=== PATIENT | male | born 1940 | race Caucasian/White ===

== ENCOUNTER 2023-12-26 09:54 | Day surgery (SDC) | payer MEDICARE, SELFPAY ==
[2023-12-18 08:01] VITALS: BMI 39.9
[2023-12-26] VITALS (12 sets, daily range): BP systolic 136–156; BP diastolic 65–91; PULSE 70–82; RESP 14–18; TEMP 36.4–36.9; O2SAT 91–99; BMI 40.6
--- NOTE | 2023-12-26 06:00 | DI.RAD.S_ITS ---
PROCEDURE: XR KNEE RT 1TO2V INDICATIONS: TKA TECHNIQUE: 2 view(s) of the knee acquired. COMPARISON: [facility] Outside Film, CR, XR KNEE 4+ VIEWS RIGHT, 03/05/2023, 13:18. FINDINGS: Bones: Patient is status post knee joint arthroplasty. Hardware components are in expected positions. Visualized bony structures are intact. Soft tissues: Overlying postoperative changes are noted. IMPRESSION: Expected post-operative appearance of a knee arthroplasty. Dictated by: Selena Pollack M.D. on 12/26/2023 at 15:41 Approved by: Selena Pollack M.D. on 12/26/2023 at 15:41
[2023-12-26] MEDS: CELECOXIB 200 MG CAPSULE 400 MG PO (10:52)
[2023-12-26] MEDS: ACETAMINOPHEN 325 MG TABLET 975 MG PO (10:53)
[2023-12-26] MEDS: LACTATED RINGERS 1,000 ML 42 ML IV ×3 (11:00→15:02)
--- NOTE | 2023-12-26 11:41 | PM.PREOP ---
Pre-operative Note Interval Note History & Physical reviewed/Exam performed by Physician: Yes Changes to H&P: No
--- NOTE | 2023-12-26 12:03 | SUR.OPER ---
Supine on padded OR bed, head on pillow, arms secured on padded arm boards at <90 degrees abduction, legs uncrossed, safety belt at waist, tape over blanket over non op leg. operative leg draped free in demayo boot.
--- NOTE | 2023-12-26 12:16 | SUR.PREOP ---
Block start time [1207] . Time out at 1156 Monitoring initiated and maintained throughout procedure. Oxygen and medications given per anesthesiologist instructions. Patient remained stable throughout procedure, no adverse reactions noted. Block end time [1210].
[2023-12-26] MEDS: CEFAZOLIN VIAL 3 GM in SODIUM CHLORIDE 0.9% 100 ML IV ×2 (12:34→20:29)
[2023-12-26] MEDS: TRANEXAMIC ACID 1,000 MG VIAL 1000 MG INJ ×2 (12:40→14:40)
[2023-12-26] MEDS: BUPIVACAINE LIPOSOME 266 MG/20 ML VIAL INJ (12:43)
[2023-12-26] MEDS: BUPIVACAINE 0.25% (PF) 60 ML, EPINEPHrine 0.3 MG INJ (12:47)
--- NOTE | 2023-12-26 15:39 | PM.OP.1 ---
Operative Date/Time/Diagnoses Date of procedure: 12/26/23 Time of procedure: 12:00 Pre-op diagnosis: Right knee arthritis Post-op diagnosis: same Procedure & Clinicians Procedure: Total knee arthroplasty, right CPT code 61329 Robotic assisted surgery S2 900 Computer navigated surgery. 61125 Same procedure as scheduled: Yes Indications: The patient is a 83-year-old male with end-stage rllz-ev-mcxy knee arthritis. The patient has a significant bilateral varus knee arthritis. He presents for right knee arthritis for a scheduled total knee arthroplasty of the right knee. He has failed conservative treatment with activity modifications, injections, physical therapy and bracing. They has been indicated for total knee replacement. The risks and benefits of the procedure have been discussed with the patient even opportunity to ask questions. The risks of surgery include but are not limited to infection, malunion, nonunion, fracture, loosening, persistence of pain, damage to nerves and blood vessels, need for additional procedures, DVT, PE, cardiopulmonary complications and . The patient expressed a thorough understanding of the risks and benefits of surgery and has elected to proceed. Consent was signed in the office. During the operation the services of physician neurosurgical nurse practitioner were medically indicated and necessary to provide the exposure of the operative site for the surgical procedure and to maintain the limb in a proper position to carry out the procedure safely and efficiently. Without a qualified pathologist assistant being present this would extend the operative procedure and would have made the procedure more technically difficult to perform. The neurosurgical nurse practitioner was medically necessary for the proper positioning, retraction and manipulation of the limb, proper exposure, and manipulation of the tissue for implantation implants and closure. Surgeon: Chrissie Howell Corporate Concierge: Ubaldo Lora Anesthesia Type: Spinal, Peripheral nerve block and Local Operative Notes Findings: Varus knee arthritis right knee Kellgren Brendan grade 4 large osteophytes. Closure Type: primary Specimen(s): none sent Prosthetic devices, grafts, tissues, transplants, or devices: Ju[employer] Nephew journey 2 bcs total knee arthroplasty, right, fever cobalt chromium size 6, tibia size 5, poly 9 mm, patella 35 x 7.5 mm, round Estimated Blood Loss (mL): 30 Blood products transfused: none Tourniquet time (min): 109 Procedure in detail: Patient was seen in the preoperative area where the patient and site of surgery were identified in the operative knee was marked informed consent confirmed. This was the right knee. Patient received the appropriate preoperative antibiotics this was 3 g of Ancef. And other preoperative medications and was taken to the operating room placed on operating table in the supine position. Peripheral nerve block was placed for postoperative pain control. Spinal anesthetic were administered. The operative extremity was then prepped and draped in the standard sterile fashion with a nonsterile tourniquet high on the thigh. Patient was placed on the green foam bolsters. A lateral post was placed at the level of the proximal thigh /trochanter area as a lateral post. Formal time-out procedure was performed confirming the patient's side and site of surgery and administration of appropriate preoperative antibiotics and implants were in the room accounted for. All were in agreement. Patient received a preoperative dose of tranexamic acid and then a 2nd dose at tourniquet release Patient was prepped and draped in the standard sterile fashion and the foot was placed into the leg maloney. This was taken into high flexion and the incision was marked out over the anterior knee to the level of the medial tubercle tubercle. The Esmarch was then used for exsanguination and the tourniquet was inflated to 250 mmHg. Was made through the skin and subcutaneous tissue in high flexion this was then brought down into 30? of flexion for the medial parapatellar arthrotomy. A marker pen was used to ephraim the arthrotomy site for later repair. Joint fluid was evacuated. The anterior osteophytes and soft tissues were removed. Routine medial release was initially made along the medial proximal tibia with Bovie. The patella was 1st cut using the saw sized and prepped and then subluxed throughout the case and protected. The leg was then taken into extension and the patella was everted and the patella was cut to accommodate the patellar button. This was sized to a 35 mm button for a 7.5 mm thickness to recreate the original dimensions of the patella. Poly was removed and the protector replaced and the patella was subluxed and the knee was taken back up into flexion and attention was returned to the femur. Then the rotational landmarks of Whitesides line and the trans epicondylar axis were marked on the femur with electrocautery. ACL and PCL were released. Then the Cori robotic pins were placed into the femur and tibia and the race set up. Landmarks were established and the robotic planning was commenced. Plan was developed and improved and adjusted as necessary to create a balanced knee. Initial deformity was 8? of varus. Plan correction to 3? of varus with balancing 1-2 mm in flexion and extension in the medial and lateral compartments. External rotation to 4? on the femur was utilized which was consistent with the patient's anatomy. Once the plan was satisfactory the bur was used to remove the distal femur. Then attention was turned to the tibia the tibial peg rios were made using the robotic guidance and then the tibia cut made. This was checked and refined with the bur. The extension block checked the resection was appropriate to the planned 3? of varus. Next attention was returned to the femur. Then the 5 in 1 cutting block was applied complete the femur cuts. The trials were placed. And the femoral notch was cut a standard fashion using Reamer then slap hammer. The knee was trialed and the checked. Knee was balanced in flexion extension. Range of motion 0-135 degrees was obtained. The rotation femoral trial was marked Bovie on the bone and checked with a long allegra. The tibia was then finished with a drill and flange cut and then The trial implants were removed. Then in extension the posterior capsule was injected with a mixture of 40 mL of 0.25% Marcaine and 20 mL of 266 mg Exparel care to avoid excessive injection posterior laterally. The remainder of this was saved for the capsule and subcutaneous tissue and placed during cement curing. The wound and bone was irrigated with pulsatile lavage. This was then dried with a sponge. The components were verified and opened and the cement was mixed. Cement was applied to the components and then to the bone then the tibia was cemented in place 1st followed by the femur then the patella. Excess cement was removed. With care looking around the back of the knee. Remainder of the injection was injected around the capsule. trial poly was placed back in the leg was placed into extension for the patellar cementing. After this was cured approximately 15 minutes later and the dilute Betadine solution was placed for at least 3 minutes in the wound this was then irrigated out and the final poly was placed. This was a 9 mm poly. The tourniquet was released hemostasis was achieved. Final 1g of tranexamic acid was given IV at the time of tourniquet release. The capsule was closed with 1. Ethibond suture. Followed by a running Quill stitch. Subcutaneous layer was closed with 3-0 Vicryl suture. Skin was closed with a running V lock suture Stratafix Monocryl type suture and Dermabond. An Aquacel dressing was placed . An Clifford wrap was applied. Anesthetic was terminated the patient was woken from anesthesia and taken to recovery room in good condition. There no immediate complications from this procedure. The patient will be maintained on a standard total knee replacement protocol with weight-bearing as tolerated. Complications: none Post-operative Condition: stable Disposition: PACU Plan for aftercare: Standard total knee postop protocol. Weightbear as tolerated. Immediate range of motion. Work with physical therapy. Aspirin 81 mg b.i.d. x6 weeks for DVT prophylaxis. Follow up in Orthopedic Clinic in 2 weeks With PA. In 6 weeks with surgeon.
[2023-12-26] MEDS: ACETAMINOPHEN 325 MG TABLET 650 MG PO (16:05)
[2023-12-26] MEDS: AMLODIPINE 5 MG TABLET PO (16:06)
[2023-12-26] MEDS: OXYCODONE IR 5 MG TABLET PO ×2 (16:06→20:20)
[2023-12-26] MEDS: IBUPROFEN 400 MG TABLET PO (16:06)
[2023-12-26] MEDS: LACTATED RINGERS 1,000 ML 100 ML IV ×2 (16:07→23:59)
[2023-12-26] MEDS: LATANOPROST 0.005% OPHTH 2.5 ML 1 DROPS EYE-RIGHT (20:18)
[2023-12-26] MEDS: DOCUSATE 100 MG CAPSULE PO (20:19)
[2023-12-26] MEDS: ASPIRIN EC 81 MG TABLET PO (20:19)
[2023-12-27 00:07] VITALS: BP 140/72; PULSE 80; RESP 18; TEMP 36.4; O2SAT 96
[2023-12-27] MEDS: ACETAMINOPHEN 325 MG TABLET 650 MG PO ×3 (03:32→16:24)
[2023-12-27] MEDS: CEFAZOLIN VIAL 3 GM in SODIUM CHLORIDE 0.9% 100 ML IV (03:32)
[2023-12-27] MEDS: OXYCODONE IR 5 MG TABLET PO (03:32)
[2023-12-27 03:35] VITALS: BP 136/80; PULSE 78; RESP 18; TEMP 37.1; O2SAT 96
[2023-12-27] MEDS: PANTOPRAZOLE DR 20 MG TABLET PO (05:36)
[2023-12-27 06:00] LABS: Hematocrit 32.3 % (41-53); Hemoglobin 10.7 g/dL (13.5-17.5)
--- NOTE | 2023-12-27 07:42 | PM.DS.1 ---
History of Present Illness History of Present Illness Chief complaint: Right TKA *OPB* 12/25 Narrative: Peter is a pleasant 83 year old male who is POD#1 s/p right TKA by Dr. Howell. This morning he states he is doing well, has mild-moderate pain only. Has been up and walking around since yesterday, reports he was walking around the halls yesterday several times, admits he might have overdone it a bit because now he feels like he has a quad cramp. Urinating well without issue, states he was able to get up and use the restroom 3x last night. Has post-op pain medications at home already. Has post op PT set up alread as well. Denies fever, chills, chest pain, SOB, nausea, vomiting. No questions or concerns for me this morning. Operative Date/Time/Diagnoses Date of procedure: 12/26/23 Time of procedure: 12:00 Pre-op diagnosis: Right knee arthritis Post-op diagnosis: same Procedure & Clinicians Procedure: Total knee arthroplasty, right CPT code 65065 Robotic assisted surgery S2 900 Computer navigated surgery. 41980 Same procedure as scheduled: Yes Indications: The patient is a 83-year-old male with end-stage srwb-lq-akga knee arthritis. The patient has a significant bilateral varus knee arthritis. He presents for right knee arthritis for a scheduled total knee arthroplasty of the right knee. He has failed conservative treatment with activity modifications, injections, physical therapy and bracing. They has been indicated for total knee replacement. The risks and benefits of the procedure have been discussed with the patient even opportunity to ask questions. The risks of surgery include but are not limited to infection, malunion, nonunion, fracture, loosening, persistence of pain, damage to nerves and blood vessels, need for additional procedures, DVT, PE, cardiopulmonary complications and . The patient expressed a thorough understanding of the risks and benefits of surgery and has elected to proceed. Consent was signed in the office. During the operation the services of physician surgical services director were medically indicated and necessary to provide the exposure of the operative site for the surgical procedure and to maintain the limb in a proper position to carry out the procedure safely and efficiently. Without a qualified entry level administrative assistant being present this would extend the operative procedure and would have made the procedure more technically difficult to perform. The surgical services director was medically necessary for the proper positioning, retraction and manipulation of the limb, proper exposure, and manipulation of the tissue for implantation implants and closure. Surgeon: Chrissie Howell Spectrographer: Ubaldo Lora Anesthesia Type: Spinal, Peripheral nerve block and Local Discharge Providers Provider Discharge Date: 12/27/23 Primary care physician: Deuce Valenzuela MD Consults: 12/26/23 06:00 Consult to Anesthesiology Routine Comment: Consulting Provider: Anesthesiologist Reason for consultation: Regional block for post operative pain control Has provider been notified: No 12/26/23 15:47 Consult to Discharge Planning Routine Comment: Consult to Occupational Therapy Evaluate & Treat Comment: Physician Instructions: Evaluate and treat Consult to Physical Therapy Evaluate & Treat Comment: Physician Instructions: postop TKA protocol Discharge provider: Susie Pollack PA-C Summary Hospital Course Discharge Diagnosis: Stable status post right TKA Hospital Course: Uncomplicated hospital course Exam Vital Signs (past 8 hours): - 12/27/23 00:07 12/27/23 03:35 Temperature 97.6 F 98.8 F Pulse Rate 80 78 Respiratory Rate 18 18 Blood Pressure 140/72 136/80 Pulse Oximetry 96 96 Oxygen Flow Rate 0 2 Oxygen Delivery Method Nasal Cannula Oxygen Flow Rate 2 Narrative Exam Narrative: Patient lying comfortably in bed during our interview today. No acute distress. AOx3. Grossly normal alignment of the right lower extremity with moderate swelling to the right knee. No ecchymosis. 5/5 strength with DF, PF, EHL bilaterally. R knee ROM 5-45. Gross sensation intact throughout bilateral lower extremities. Calves soft and compressible bilaterally. SCDs are on and functioning Brisk capillary refill, PT pulses intact. Post-surgical dressing/Aquacel dressing completely saturated with bloody discharge. Objective Labs 12/27/23 05:00 Labs: Laboratory Results - last 24 hr 12/27/23 05:00 Hgb 10.7 L Hct 32.3 L PFSH Medical History (Updated 12/18/23 @ 09:18 by Aissatou Velarde RN) Osteoarthritis Presence of device (~2021) Overactive bladder Bleeding ulcer Asthma GERD (gastroesophageal reflux disease) ANSHUL (obstructive sleep apnea) BPH (benign prostatic hyperplasia) HTN (hypertension) Hypercholesterolemia Diverticulosis History of chest pain Chronic back pain Glaucoma Influenza A (08/2023) Surgical History (Updated 12/18/23 @ 09:18 by Aissatou Velarde RN) Hx of arthroscopy of right knee Hx of tonsillectomy S/P TURP (transurethral resection of prostate) Hx of bilateral cataract extraction Social History household members: spouse and children Smoking Status: Former smoker alcohol intake: current Discharge Assessment & Plan Assessment and Plan Assessment: Stable s/p R TKA The patients saturated Aquacel dressing was removed and there continued to be some bloody drainage from the incision, most prominently at the distal incision. The wound had a few jeanette at superior aspect but the rest of the incision was closed w/ subcutaneous sutures. To stop/prevent continued bleeding the wound was cleaned with chlorhexidine, sterile gloves were used, and the wound was completely stapled closed. The wound was then dressed with a althea dressing and the patient was counseled on althea dressing use and care. He tolerated the procedure well. Plan of Treatment: 1) Plan to discharge to home today with pending PT evaluation. 2) Continue multimodal pain management with ice to the knee for additional pain control. Patient has postop pain medications at home already. 3) ASA b.i.d. for DVT prophylaxis. Counseled on DVT signs and symptoms. 4) Start outpatient physical therapy to work on range of motion and mobility. 5) Keep dressing intact, clean, dry until 2 week postop appointment. No soaking the incision site in pools or tubs. No topical ointments or creams to the incision site. 6) Follow up at [facility] orth[facility]ics in 2 weeks for a postop appointment and wound check/staple removal. All patient's questions were answered, he demonstrates understanding and is in agreement with the plan. Call our office if any questions or concerns arise. Discharge Plan Discharge Plan Patient Disposition: Home Discharge orders & Medications Discharge Orders: Discharge (Order); Ordered 12/27/23 Ordered By: Susie Pollack Prescriptions: New acetaminophen 325 mg Tablet 650 mg PO Q6H Qty: 90 0RF aspirin 81 mg Tablet,Delayed Release (Dr/Ec) 81 mg PO BID Qty: 90 0RF ibuprofen 400 mg Tablet 400 mg PO Q4H PRN (Reason: Pain, Mild (1-3)) Qty: 90 0RF docusate sodium 100 mg Capsule 100 mg PO BID Qty: 30 0RF ondansetron 4 mg Tablet,Disintegrating 4 mg PO Q4HR PRN (Reason: Nausea And Vomiting) Qty: 10 0RF oxycodone 5 mg Tablet 5 mg PO Q3H PRN (Reason: Pain, Moderate (4-6)) Qty: 30 0RF Continued latanoprost 0.005 % Drops 1 drp OPHTHALMIC (EYE) BEDTIME acetaminophen-caffeine 500-65 mg Tablet 2 tab PO DAILY PRN (Reason: Headache) amlodipine 5 mg Tablet 5 mg PO QPM ferrous sulfate 325 mg (65 mg iron) Tablet 325 mg PO DAILY omeprazole 20 mg Tablet,Delayed Release (Dr/Ec) 20 mg PO DAILY PreserVision AREDS-2 250-90-40-1 mg Capsule 1 tab PO BID Advair Diskus 250-50 mcg/dose Blister With Device 1 inh INHALATION DAILY PRN (Reason: Shortness Of Breath) albuterol sulfate 90 mcg/actuation Hfa Aerosol Inhaler 2 puff INHALATION Q4-6H PRN (Reason: Shortness Of Breath) Follow up/Referrals: Chrissie Howell MD [Physician] - (Follow up at [facility] as scheduled in 2 weeks. ) Deuce Valenzuela MD [Primary Care Provider] - Diet/Activity/Treatments Diet: Diet as Tolerated Activity: Weightbearing as tolerated. Work with outpatient physical therapy to improve strength and mobility. Cold/Heat Therapy: Ice to the knee for additional pain control Other treatments: Medications: -Aspirin 81mg twice daily x6 weeks to prevent blood clots. -OTC Tylenol 500 mg 1 tablet every 4 hours as needed for pain/fever. Max 6 tablets per day. (take scheduled every 4-6 hours for the first few days to week after schedule to help stay on top of your pain) -Ibuprofen 400 mg 1 tablet every 4 hours as needed for pain/inflammation. Max 2,400 mg per day. (take scheduled for the first few days-week after surgery to stay on top of your pain) -Oxycodone 5 mg take 1-2 tablets (5-10mg) every 4 hours as needed for moderate-severe pain (narcotic pain medication). (maximum dose for very severe pain would be 3 pills (15mg) every 3 hours) -Vistaril (hydroxyine) 25mg 1 tab every 4 hours as needed for spasms/pain/nausea. -ondansetron 4mg - 1 tab every 8 hours as needed for nausea -As needed medications: -Ducolax and /or MiraLax as needed for constipation from narcotic pain medications. -Pepcid AC as needed for stomach upset (usually from aspirin or ibuprofen). Dressing/Wound care: -Remove the Clifford wrap 48 hours after surgery. -Keep Althea dressing in place until postoperative follow-up office visit. -Okay to shower. Keep wound out of direct water stream. No soaking or submerging until all the scabs fall off (approximately 4-6 weeks). -No lotions, ointments, or scar creams directly to the incision until the wound is healed (4-6 weeks), -Please call the office if dressing becomes wet, soiled, or saturated. Activities: -Weight-bearing as tolerated. Use front wheeled walker, and progress to cane when safe. -Continue with home exercises as directed by your physical therapist. (work on getting your leg. knee fully straight and bending knee as well- motion after knee replacement is very important) -should have outpatient Physical Therapy visits set up to start within 1 week after surgery -Elevate ?toes above the nose if you have significant swelling in your lower leg. (A wedge pillow is easiest.) -Ice your incision as needed for pain/inflammation/swelling. Protect your skin with a folded pillowcase. -Incentive Spirometer (breathing device from hospital): 5-10xs every hour while awake for the first 1-2 weeks. Follow-up: -Follow-up with your surgeon or PA in the office in 10-14 days after surgery. -Follow-up with your surgeon 6 weeks postoperatively. Contact the office if you have any of the following: ? Painful swelling or numbness ? Unrelenting pain ? Fever (over 101?- it is normal to have a low grade fever for the first day or two following surgery) or chills ? Redness around the incisions ? Color changes ? Continuous bleeding or drainage from the incision (a small amount is expected) ? Excessive nausea or vomiting ? Difficulty breathing If you have an emergency that requires immediate attention such as shortness of breath or chest pain, call 911 or proceed to the nearest emergency room. [facility]: [phone] Pain Medications: It is the policy of [facility] that narcotic medications will only be refilled during office hours. Additionally, due to the alarming rate of narcotic pain medication abuse/dependence, it has become necessary for physician practices to closely manage patient use of prescription narcotic pain relievers, such as Vicodin ([place]), Percocet, and Oxycodone products. Narcotic pain management in the postoperative period may not exceed 6 weeks. If narcotic pain management is required beyond 90 days, then a referral to a Chronic Pain Specialist will be made. If a request for a medication prescription of refill has been made, the physician must review your chart prior to authorizing the request. Please be patient with office staff. If you call during patient hours, your call may not be returned until the end of the day. Skin/Wound/Dressing Care Report to your healthcare provider any signs of infection, such as:: chills, fever, night sweats, unusual drainage and unusual redness Dressing: Keep dressing intact, clean and dry until 2 week post-op appointment. No soaking the incision site in pools or tubs. No topical ointments or creams to the incision site. Visit Report/Discharge Packet Instructions: DI for Knee Replacement, DI for Prescription Opioid Use Stand Alone Forms: Patient Portal/API Discharge Data Primary Care Provider: Deuce Valenzuela Attending Provider: Chrissie Howell VTE Deep Vein Thrombosis/Pulmonary Embolism Present on Admission: No
[2023-12-27] MEDS: OXYCODONE IR 10 MG TABLET PO ×3 (07:58→16:24)
[2023-12-27 08:00] VITALS: BP 135/74; PULSE 96; RESP 20; TEMP 37.1; O2SAT 96
[2023-12-27] MEDS: ASPIRIN EC 81 MG TABLET PO (08:31)
[2023-12-27] MEDS: DOCUSATE 100 MG CAPSULE PO (08:31)
--- NOTE | 2023-12-27 12:17 | OT.IP.EVAL ---
Current Diagnoses Unilateral primary osteoarthritis, right knee (12/26/23) Body mass index [BMI] 40.0-44.9, adult (12/26/23) Surgery Performed Operation Date: 12/26/23 11:45 Actual Procedures p Total Knee Arthroplasty - Robot(Right) - Chrissie Howell MD Past Medical History (Last Updated 12/18/23 @ 09:18 by Aissatou Velarde, RN) Asthma Bleeding ulcer BPH (benign prostatic hyperplasia) Chronic back pain Diverticulosis GERD (gastroesophageal reflux disease) Glaucoma History of chest pain HTN (hypertension) Hypercholesterolemia Influenza A (08/2023) ANSHUL (obstructive sleep apnea) Osteoarthritis Overactive bladder Presence of device (~2021) Surgical History (Last Updated 12/18/23 @ 09:18 by Aissatou Velarde RN) Hx of arthroscopy of right knee Hx of bilateral cataract extraction Hx of tonsillectomy S/P TURP (transurethral resection of prostate) Occupational Therapy Inpatient Evaluation/Re-Eval M1 PT/OT-IP Prior Functional Status Start: 12/27/23 08:22 Freq: NEEDED Status: Active Protocol: Document 12/27/23 11:43 JG (Rec: 12/27/23 12:48 JG [id number]) Medical Review Prior Functional Status Medical History Reviewed Yes Diet/Fluid Consistency Regular Communication WNL Mobility and Gait Pt was furniture surfing pre- op. Activities of Daily Living and IADL's Pt was able to dress and bathe himself pre-op Social History Household Members spouse Living Arrangements House Number of Floors (Floors) One Floor Number of Stairs To Enter/Railing? 1 Home Equipment Front Wheel Walker,Raised Toilet Seat w/Armrests,Shower Seat without Backrest,Hand Held Shower Employment Status Retired Additional Social History Comment Pt will have support at home upon d/c M1 PT/OT-IP Prior Functional Status Start: 12/27/23 12:41 Freq: NEEDED Status: Active Protocol: Document 12/27/23 12:43 CCC (Rec: 12/27/23 12:55 [facility] [id number]) Medical Review Prior Functional Status Communication Independent Mobility and Gait Pt states did not use a device but at times at home would furniture cruise. Activities of Daily Living and IADL's Pt states due to pain needed assist with shoes/socks. Social History Household Members spouse,children Living Arrangements House Number of Floors (Floors) One Floor Number of Stairs To Enter/Railing? 1 step to enter the house. Home Environment Standard Height Toilet,High Toilet Home Equipment Front Wheel Walker,Raised Toilet Seat w/Armrests,Shower Seat without Backrest,Hand Held Shower M2 OT-IP Current Condition Start: 12/27/23 12:41 Freq: Status: Active Protocol: Document 12/27/23 12:43 [facility] (Rec: 12/27/23 12:55 [facility] [id number]) Occupational Therapy Current Condition Current Condition Evaluation Date 12/27/23 Treatment Diagnosis S/p R TKA Diagnosis Onset Date 12/26/23 M3 OT- IP Subjective and Pain Start: 12/27/23 12:41 Freq: Status: Active Protocol: Document 12/27/23 12:43 [facility] (Rec: 12/27/23 12:55 [facility] [id number]) OT- Subjective Occupational Therapy Visit Type Type Initial Evaluation Visit Start Time 11:43 Visit Stop Time 12:17 Occupational Therapy Visit Comments Patient Comments Pt agreed to get up. Patient/Caregiver Goals To go home. OT Pain Assessment Pain When Pain Assessed During Mobility Pain Present Pain Present Pain Reported Location Right Knee Intensity 6 Scale Used Numeric (0 - 10) M4 OT- IP ADL's Start: 12/27/23 12:41 Freq: Status: Active Protocol: Document 12/27/23 12:43 [facility] (Rec: 12/27/23 12:55 [facility] [id number]) OT [id number] General Evaluation Self-Feeding Ability Independent OT ADL-Grooming General Evaluation Grooming Ability Standby Assistance Comments OT Grooming Comments After set-up. OT ADL-Oral Care Comments Oral Care Comments Not performed. OT ADL-Dressing General Eval Lower Body Dressing Ability Maximum Assistance Comments OT Dressing Comments Educated pt on LB dressing equipment. Pt states to just wear slip on shoes and no socks. Educated to dress his RLE first and take out last. Also to be mindful on his right knee positioning during ADL needs. OT ADL-Toileting Comments OT Toileting Comments Not performed. Suggested to use the urinal at night. OT ADL-Bathing Comments OT Bathing Comments Pt will need assist and educated to cover the dressing for showering needs. M5 OT- IP IADL's Start: 12/27/23 12:41 Freq: Status: Active Protocol: Document 12/27/23 12:43 [facility] (Rec: 12/27/23 12:55 [facility] [id number]) OT-Instrumental Activities of Daily Living Home Safety Awareness Awareness of Need for Assistance at Home Good Awareness Ability to Problem Solve Emergency Able to Problem Solve Situations Chemists Chemists Caregiver Provides Assist Driving Driving Concerns Identified Regarding Safety M6 OT- IP Functional Cognition Start: 12/27/23 12:41 Freq: Status: Active Protocol: Document 12/27/23 12:43 [facility] (Rec: 12/27/23 12:55 [facility] [id number]) Cognitive Factors Limiting Selfcare Function Cognitive Ability Level of Alertness Alert Patient Orientation Name,Age,Birthday,Month,Date, Year,Day of Week,Place, Situation Attention Span Ability Capable of Focused Attention, Capable of Sustained Attention Ability to Follow Commands Able to Follow One Step Commands Cognitive Comments Cognitive Assessment Comments Pt able to follow commands for ADL and mobility needs. Pt needing initial education to push up form surfaces when coming to stand. OT- Vision and Hearing OT- Vision Assessment Vision Assessment Comments Pt wears glasses. M7 OT- IP Mobility and Balance Start: 12/27/23 12:41 Freq: Status: Active Protocol: Document 12/27/23 12:43 [facility] (Rec: 12/27/23 12:55 [facility] [id number]) OT-Transfer Assessment Sit to and From Stand Sit to and from Stand Contact Guard Assistance, Minimal Assistance Transfers Transfer Ability Contact Guard Assistance Technique Transfer Destination Bed,Chair Transfer Technique Stand Step Pivot Devices Transfer Assistive Devices Gait Belt,Front Wheeled Walker Comments Mobility Comments THOMAS to stand from the recliner with FWW and vc to tighten his RLE. OT- Balance Assessment Sitting Balance and Reactions Static Sitting Balance Ability Good Dynamic Sitting Balance Ability Good Standing Balance and Reactions Static Standing Balance Ability Fair Dynamic Standing Balance Ability Fair M8 OT- IP Objective Assessments Start: 12/27/23 12:41 Freq: Status: Active Protocol: Document 12/27/23 12:43 [facility] (Rec: 12/27/23 12:55 [facility] [id number]) OT Gross Range of Motion Upper Extremity Range of Motion ROM Impairments WFL for needs. OT Strength Comments Strength Comments WFL for needs. M9 OT- IP Assessment and Plan Start: 12/27/23 12:41 Freq: Status: Active Protocol: Document 12/27/23 12:43 [facility] (Rec: 12/27/23 12:55 [facility] [id number]) OT Summary Assessment and Plan Potential Rehabilitation Potential Good Analytic Complexity at Evaluation Low Summary OT Impairments Pain,Strength,Balance, Functional Mobility,Dressing, Toileting,Bathing,Toilet Transfers,Shower Transfers Progress Towards Goals Progressing Toward Goals Assessment Summary Pt low complexity and main barriers are pain, step and will benefit from assist with dressing,toileting , and bathing needs at this time. Pt to have his assist him. Pt to go home when medically stable. Pt states felt over did it last night as got up twice with staff and walked in the hallway. Goals Self-Feeding Goal Independent Grooming Goal Independent Dressing Goal Standby Assistance Toileting Goal Standby Assistance Bathing Goal Minimal Assistance Toilet Transfer Goal Standby Assistance Shower Transfer Goal Contact Guard Assistance Days to Meet Goals 3 Frequency of Treatment Frequency Of Treatment Once a Day Treatment Plan OT Treatment Plan ADL Training,Functional Mobility,Patient/Family Education,Discharge Planning Discharge Recommendations OT Discharge Recommendations Home with Assistance, Outpatient PT Transportation Needs at Discharge Private Vehicle
--- NOTE | 2023-12-27 12:48 | PT.IIE ---
Addendum entered and electronically signed by Annabelle Montana PT 12/27/23 12:51: PT provides direct superv to SPT during assessment Original Note: Current Diagnoses Unilateral primary osteoarthritis, right knee (12/26/23) Body mass index [BMI] 40.0-44.9, adult (12/26/23) Surgery Performed Operation Date: 12/26/23 11:45 Actual Procedures p Total Knee Arthroplasty - Robot(Right) - Chrissie Howell MD Surgical History (Last Updated 12/18/23 @ 09:18 by Aissatou Velarde RN) Hx of arthroscopy of right knee Hx of bilateral cataract extraction Hx of tonsillectomy S/P TURP (transurethral resection of prostate) Medical History (Last Updated 12/18/23 @ 09:18 by Aissatou Velarde RN) Asthma Bleeding ulcer BPH (benign prostatic hyperplasia) Chronic back pain Diverticulosis GERD (gastroesophageal reflux disease) Glaucoma History of chest pain HTN (hypertension) Hypercholesterolemia Influenza A (08/2023) ANSHUL (obstructive sleep apnea) Osteoarthritis Overactive bladder Presence of device (~2021) Physical Therapy Inpatient Evaluation/Re-Eval M1 PT/OT-IP Prior Functional Status Start: 12/27/23 08:22 Freq: NEEDED Status: Active Protocol: Document 12/27/23 11:43 JG (Rec: 12/27/23 12:48 [facility] [id number]) Medical Review Prior Functional Status Medical History Reviewed Yes Diet/Fluid Consistency Regular Communication WNL Mobility and Gait Pt was furniture surfing pre- op. Activities of Daily Living and IADL's Pt was able to dress and bathe himself pre-op Social History Household Members spouse Living Arrangements House Number of Floors (Floors) One Floor Number of Stairs To Enter/Railing? 1 Home Equipment Front Wheel Walker,Raised Toilet Seat w/Armrests,Shower Seat without Backrest,Hand Held Shower Employment Status Retired Additional Social History Comment Pt will have support at home upon d/c M2 PT-IP Current Condition Start: 12/27/23 08:22 Freq: NEEDED Status: Active Protocol: Document 12/27/23 11:43 JG (Rec: 12/27/23 12:48 [facility] [id number]) Physical Therapy Current Condition Current Condition Evaluation Date 12/27/23 Treatment Diagnosis R TKA M3 PT-IP Subjective Start: 12/27/23 08:22 Freq: NEEDED Status: Active Protocol: Document 12/27/23 11:43 JG (Rec: 12/27/23 12:48 J [id number]) Subjective Physical Therapy Visit Type Type Initial Evaluation Visit Start Time 11:43 Visit Stop Time 12:10 Number of REVENUE CYCLE ADMINISTRATOR Visits 0 Physical Therapy Visit Comments Patient Comments Pt is agreeable to PT. He reports maybe overdoing it with walking last evening post -op. Therapy Pain Assessment Pain When Pain Assessed At Rest Pain Present Pain Present Pain Reported Location Right Knee Intensity 7 Scale Used Numeric (0 - 10) Description Sharp Pain Behaviors Guarding,Wincing Pain Management Techniques Apply Cold,Modification of Treatment,Re-positioning, Timing of Activity with Medications M4 PT-IP Mobility and Gait Start: 12/27/23 08:22 Freq: NEEDED Status: Active Protocol: Document 12/27/23 11:43 JG (Rec: 12/27/23 12:48 Jerry [id number]) PT-Bed Mobility Assessment Rolling Type of Rolling Roll to Right Level of Assist Standby Assistance Supine to Sit Supine to Sit Standby Assistance,Bedrails Scooting Scooting to Edge of Bed Independent PT-Transfer Assessment Sit to and From Stand Sit to and from Stand Contact Guard Assistance,1 Person Assistance,Use of Upper Extremities Equipment Transfer Assistive Device Bed Rail,Gait Belt,Front Wheeled Walker Orthotic/Prosthetic Devices or Brace: No Transfers Transfer Destination Chair Transfer Technique Ambulation Transfer Ability Level of Assist Contact Guard Assistance, Minimal Assistance,1 Person Assistance,Use of Upper Extremities Comments Mobility Comments Pt was SBA with bed mobility and I with scooting to EOB. He utilized railing for rolling to the R, which he does not have on his home bed. Gait Assessment Gait Gait Assistance Required: Minimum Assistance,1 Person Assist Distance (Feet) 20 Able to Maintain Weight Bearing Status Yes During Gait Assistive Devices Assistive Device Gait Belt,Front Wheeled Walker Orthotic/Prosthetic Devices or Brace: No Gait Deviations General Gait Pattern Decreased Stride Length, Decreased Feet Clearance, Flexed Trunk,Step-to Gait Factors Limiting Gait Function Factors Limiting Gait Function Abnormal Tonal Influences, Decreased Activity Tolerance, Decreased Strength,Limited Range of Motion,Pain,Poor Balance,Poor Safety Awareness Comments Gait Comments Pt's R quad was sore from last gait training session last night. Pt was complaining of pain that was sharp in right knee and was unable to ambulate outside of hospital room. PT wishes to be mindful of surgical wound given nsg reports of staple and wound challenges post-op (wound re- dressed this a.m. by PA after bleeding) PT-Balance Assessment Sitting Balance and Reactions Static Sitting Balance Ability Fair Dynamic Sitting Balance Ability Fair Standing Balance and Reactions Static Standing Balance Ability Fair Dynamic Standing Balance Ability Fair Device Used FWW M5 PT-IP Objective Assessments Start: 12/27/23 08:22 Freq: NEEDED Status: Active Protocol: Document 12/27/23 11:43 JG (Rec: 12/27/23 12:48 J [id number]) Orientation Orientation/Cognition Level of Alertness Alert Orientation Name,Age,Birthday,Month,Date, Year,Day of Week,Place, Situation Language Function Ability No Deficits Noted Safety Awareness Understands Safety Issues Memory Description No Deficits Noted Gross Range of Motion Upper Extremity ROM Impairments Defer to OT Lower Extremity ROM Assessment Right Impaired Impairments Passive flexion in sitting to grossly 70 deg and extension from flexion grossly 35 deg Strength Lower Extremity Strength Assessment Right Impaired Knee 2-/5 R knee ext Comments Strength Comments Pt demonstrated difficutly with lifting R knee off the ground with ext. Did not MMT d /t recent bleeding issues at knee Other Assessments Other Other Assessments Edema right LE M6 PT-IP Treatment Start: 12/27/23 08:22 Freq: NEEDED Status: Active Protocol: Document 12/27/23 11:43 JG (Rec: 12/27/23 12:48 J [id number]) Physical Therapy Treatment Exercises Exercises Ankle Pumps,Quad Sets Education Education Provided Weight Bearing Status,Post-Op Packet,Safety M7 PT-IP Assessment and Plan Start: 12/27/23 08:22 Freq: NEEDED Status: Active Protocol: Document 12/27/23 11:43 JG (Rec: 12/27/23 12:48 J [id number]) PT Summary Assessment and Plan Potential Rehabilitation Potential Fair Status of Condition at Evaluation Evolving Summary Impairments Pain,ROM,Strength,Balance,Tone ,Bed Mobility,Transfers,Gait, Activity Tolerance Progress Towards Goals Slow Progress due to Activity Tolerance Assessment Summary Pt is an 83 y/o male s/p TKA that was in bed with head up upon PT arrival. PT was asked to return later in the morning due to new stitches that were placed in pt's leg as of this morning just prior to PT arrival. Pt had moderate to high pain 7/10 in the R LE and mentioned that his R quad was really sore from gait training yesterday. Pt also had bleeding noted through dressing over patella. Mobility was limited to room d /t right knee issues today. Nsg measuring bleeding at dressing after PT treatment to monitor. Will be careful with right knee extension and flexion exercises and stair training d/t surgical area. Goals Bed Mobility Goal Independent Transfer Goal Independent,Front Wheeled Walker Gait Goal Independent,Front Wheel Walker Gait Distance 125 Other Goals Pt will ascend and descend step with LRAD and no more than CGA to allow safe home entrance. Days to Meet Goals 5 Frequency of Treatment Frequency Of Treatment Twice a Day Treatment Plan Physical Therapy Treatment Plan Bed Mobility Training,Transfer Training,Gait Training, Therapeutic Exercise,Balance Retraining,Post Op Education, Discharge Planning,Hot or Cold Pack Weight Bearing Status Weight Bearing Status Weight Bear as Tolerated Recommendations To Nursing Amount of Assist Needed 1 Person Assist Discharge Recommendations PT Discharge Recommendations Home with 29/01 Assist Available,Outpatient PT Transportation Needs at Discharge Private Vehicle
--- NOTE | 2023-12-27 13:10 | DI.US.S_ITS ---
PROCEDURE: US PERIPH VENOUS LOW EXTREM RT INDICATIONS: Pain and swelling RLE TECHNIQUE: Real-time imaging, as well as color and pulse Doppler interrogation, were performed of the lower extremity deep veins from the inguinal ligament to the popliteal fossa, with documentation of the visualized calf veins. COMPARISON: None. FINDINGS: The common femoral, femoral, popliteal, and the visualized calf veins are normally compressible, and free of intraluminal thrombus. Color and pulse Doppler demonstrate normal phasic intraluminal flow. There is normal augmentation response to distal compression maneuver. IMPRESSION: No findings of lower extremity deep venous thrombosis. Dictated by: Sorin Gatica M.D. on 12/27/2023 at 13:10 Approved by: Sorin Gatica M.D. on 12/27/2023 at 13:10
--- NOTE | 2023-12-27 13:45 | CM.DANOTE ---
Patient is an 83 yo male who was admitted [facility] [place] on 12/26/23 for RTKA. Pt has [facility] for insurance and his PCP is Dr. Deuce Valenzuela at [facility] in [place]. EMR was reviewed. Per Ortho PA, pt tolerated procedure well but had some drainage and required some closure of his site bedside this morning. Pt may be stable for discharge today vs tomorrow pending progress. Per PT/OT, pt was limited to ambulating only in his room due to the wound care caution but still recommending home with assist and outpt PT. SW met briefly bedside with pt and explained role and he confirms he lives in [place] with his and is independent with ADLs at baseline and drives and was not using DME but furniture surfing at home. Pt obtained a FWW for home use for post surg help. Pt preference is home when medically stable but Ultrasound currently bedside as pt's leg with increased swelling and to r/o DVT or compartment syndrome etc.. to determine if pt stable for discharge. Plan: SW to follow closely for Ultrasound results to r/o any further medical needs and determine discharge home with spouse today vs tomorrow. KASSIE Hare Discharge Planning/Care Management CM Discharge Assessment Start: 12/27/23 13:43 Freq: Status: Active Protocol: Document 12/27/23 13:43 BF (Rec: 12/27/23 13:45 BF [id number]) Discharge Planning Assessment Assigned Sprinkler Fitter KASSIE Coto DPOA/Assigned Designee Name spouse Soren Contact Information [phone] Advance Directives? Yes Advance Directives on File No History Provided By Patient,Medical Record Has Patient been admitted in last 30 No days? Prior Living Arrangements House Household Members spouse,children Type of transporation used prior to Drives own vehicle admit Independent with ADL's Yes Is patient alert and oriented? Yes Needs Assistance With Home Chores / Shopping Caregiver for Another No Community Services used prior to Physical Therapy admission: Comment Pt got walker for home use post surg Patient/Family Preference OP PT Therapy Barriers to Discharge No Discharge Plan Home Community Services Physical Therapy Transportation Arrangement Likely spouse to transport at d/c Referrals Initiated None needed Whiteboard Updated in Patient Room with Yes name and ext. # of Sprinkler Fitter Review Status In Process Please Provide Date Initial DC 12/27/23 Assessment Was Performed Next Review Type Continued Stay Review Pre-Anesthesia Assessment Start: 12/18/23 08:01 Freq: Status: Complete Protocol: Document 12/18/23 08:01 [facility] (Rec: 12/18/23 09:36 [facility] [id number]) Pre-Anesthesia Assessment Preferred Name Trav Patient Information Reviewed Via Phone Assessment Assessment Completed With Patient Primary Care Provider Deuce Valenzuela Seen Specialist in Last 12 Months Yes Specialist Seen Orthopedist Primary Language Japanese Power Plant Inspector Required No Height 177.8 cm Weight 126.099 kg Body Mass Index (BMI) 39.9 Hearing Ability Normal Visual Assist Glasses Dentition Type Teeth, Natural Present Barriers to Learning None Hx Anesthesia Reactions No Hx Family Anesthesia Reaction No Hx Malignant Hyperthermia No Hx Blood Transfusions No Anesthesia Review Requested No Wrister No alcohol intake current alcohol intake frequency holidays/special occasions only Smoking Status Former smoker how long ago did patient quit smoking 1968 Substance Use Type does not use Pain Present Pain Reported Musculoskeletal Symptoms Abnormal Gait,Difficulty Walking,Joint Pain,Joint Stiffness History of Falling (Recent or History of Yes ) Patient is completely paralyzed or No completely immobile Mental Status Oriented to own ability Comment Uses a walking stick at times Is patient on oxygen? No Does patient have LOCKE/SOB Yes: Chronic due to asthma, past environmental exposure Hx Sleep Apnea Yes: Pt states Mild, no CPAP required per pt CPAP/BIPAP use not prescribed Currently Taking a Beta Renay No Hx Chest Pain Yes: Pt states related to stress once in awhile Hx SOB Yes: Chronic due to asthma, past environmental exposure Hx Syncope or Dizziness No Anti-Coagulant Therapy No Has a Surveyor Hydrographic No Cardiac Testing Yes: Echo 08/16/23, Stress test @ [facility] Hx Pacemaker/ICD No Pacemaker Rep Required? No Diet Type At Home Regular Dysphagia No Gastrointestinal Symptoms Excessive Flatus,Reflux Genitourinary Symptoms Dribbling Bladder Pattern Urgency Urinary Catheter Present No Hx Urinary Self Catheterization No Diabetes No Presence of External or Internal Medical Yes: Bladder stimulator Devices Received a COVID vaccine? Yes Received all doses? Yes Marital Status Lives With spouse,children Current Living Arrangements House Number of Floors (Floors) One Floor Support System Spouse Does the Patient Have Assistance After Yes Surgery Patient Discharge Plan Description Return Home Comment Pt advised overnight length of stay per surgeon Feels Safe in Current Environment Yes Been Physically Hurt or Threatened By a No Person in Current Environment Do you have thoughts of harming yourself None or others? Are you currently considering suicide? No Do you have a plan to hurt yourself or No Plan others? Do You Have Any Spiritual Beliefs That No May Affect Your HC Choices? Do You Have Any Cultural Practices That No May Affect Your HC Choices? Comment Congregation Who Can We Speak to About Patient's Care Family, friends Identifying Code for Release of Patient Declines to issue Information Health Care Proxy/Next of Kin Joe () Health Care Proxy or [phone] Emergency Contact Name Joe () Emergency Contact or [phone] Advance Directives? Yes Advance Directives on File No Requested Patient Bring Advanced Yes Directives DOS Power of Dry Placer Machine Operator Yes Power of Dry Placer Machine Operator Name Joe (lynn) Power of Dry Placer Machine Operator or [phone] PAC Instructions Assistance for 24 hours post- op,Durable medical equipment, Medications to take/avoid, Nasal antibiotic,No ETOH/ petroleum product on skin DOS, NPO,Pre-surgical wash,Sensory aids,Sturdy shoes/comfortable clothes,Do not bring valuables and remove jewelry
--- NOTE | 2023-12-27 15:00 | PT.IPTN ---
Current Diagnoses Unilateral primary osteoarthritis, right knee (12/26/23) Body mass index [BMI] 40.0-44.9, adult (12/26/23) Surgery Performed Operation Date: 12/26/23 11:45 Actual Procedures p Total Knee Arthroplasty - Robot(Right) - Chrissie Howell MD Physical Therapy Treatment Note M2 PT-IP Current Condition Start: 12/27/23 08:22 Freq: NEEDED Status: Active Protocol: Document 12/27/23 11:43 JG (Rec: 12/27/23 12:48 JG [id number]) Physical Therapy Current Condition Current Condition Evaluation Date 12/27/23 Treatment Diagnosis R TKA M3 PT-IP Subjective Start: 12/27/23 08:22 Freq: NEEDED Status: Active Protocol: Document 12/27/23 15:29 TS (Rec: 12/27/23 15:43 TS [id number]) Subjective Physical Therapy Visit Type Type Treatment Note Visit Start Time 15:00 Visit Stop Time 15:26 Number of HOSPITALIST Visits 1 Physical Therapy Visit Comments Patient Comments Pt found resting in bed, reports feeling more sore in his knee this afternoon, pt is agreeable to PT. Therapy Pain Assessment Pain When Pain Assessed During Mobility Pain Present Pain Present Pain Reported Location Right Knee Intensity 7 Scale Used Numeric (0 - 10) Pain Management Techniques Apply Cold,Modification of Treatment,Re-positioning, Timing of Activity with Medications M4 PT-IP Mobility and Gait Start: 12/27/23 08:22 Freq: NEEDED Status: Active Protocol: Document 12/27/23 15:29 TS (Rec: 12/27/23 15:43 TS [id number]) PT-Bed Mobility Assessment Supine to Sit Supine to Sit Standby Assistance,Head of Bed Elevated,Bedrails Scooting Scooting to Edge of Bed Independent PT-Transfer Assessment Sit to and From Stand Sit to and from Stand Standby Assistance Equipment Transfer Assistive Device Gait Belt,Front Wheeled Walker Orthotic/Prosthetic Devices or Brace: No Comments Mobility Comments Supine to sit SBA with HOB elevated and use of bedrails, pt requires extra time for RLE to EOB. STS SBA with BUE support on FWW. He ambulated ~ 40' in room SBA with slow step to gait, c/o increasing pain. pt requested to use toilet, he voided in standing with rail support. He performed steps x2 with single rail and [employer] Diana for descending step. Pt was left back in bed, all needs met. Gait Assessment Gait Gait Assistance Required: Standby Assistance Distance (Feet) 40 Able to Maintain Weight Bearing Status Yes During Gait Assistive Devices Assistive Device Gait Belt,Front Wheeled Walker Orthotic/Prosthetic Devices or Brace: No Gait Deviations General Gait Pattern Decreased Stride Length, Decreased Feet Clearance, Flexed Trunk,Step-to Gait Factors Limiting Gait Function Factors Limiting Gait Function Abnormal Tonal Influences, Decreased Activity Tolerance, Decreased Strength,Limited Range of Motion,Pain,Poor Balance,Poor Safety Awareness Comments Gait Comments See mobility comments Stair Climbing Assessment Evaluation Level of Assist On Stairs Contact Guard Assistance,1 Person Assistance Devices Stair Climbing Assistive Devices Left Railing,Right Railing Technique/Endurance Stair Climbing Direction Ascend and Descend Stair Climbing Technique Step to Step Number of Steps Climbed 2 Comments Stair Climbing Comments See mobility comments PT-Balance Assessment Sitting Balance and Reactions Static Sitting Balance Ability Good Dynamic Sitting Balance Ability Good Standing Balance and Reactions Static Standing Balance Ability Good Dynamic Standing Balance Ability Fair Device Used FWW M5 PT-IP Objective Assessments Start: 12/27/23 08:22 Freq: NEEDED Status: Active Protocol: Document 12/27/23 11:43 JG (Rec: 12/27/23 12:48 J [id number]) Orientation Orientation/Cognition Level of Alertness Alert Orientation Name,Age,Birthday,Month,Date, Year,Day of Week,Place, Situation Language Function Ability No Deficits Noted Safety Awareness Understands Safety Issues Memory Description No Deficits Noted Gross Range of Motion Upper Extremity ROM Impairments Defer to OT Lower Extremity ROM Assessment Right Impaired Impairments Passive flexion in sitting to grossly 70 deg and extension from flexion grossly 35 deg Strength Lower Extremity Strength Assessment Right Impaired Knee 2-/5 R knee ext Comments Strength Comments Pt demonstrated difficutly with lifting R knee off the ground with ext. Did not MMT d /t recent bleeding issues at knee Other Assessments Other Other Assessments Edema right LE M6 PT-IP Treatment Start: 12/27/23 08:22 Freq: NEEDED Status: Active Protocol: Document 12/27/23 15:29 TS (Rec: 12/27/23 15:43 TS [id number]) Physical Therapy Treatment Education Education Provided Weight Bearing Status,Post-Op Packet,Safety M7 PT-IP Assessment and Plan Start: 12/27/23 08:22 Freq: NEEDED Status: Active Protocol: Document 12/27/23 15:29 TS (Rec: 12/27/23 15:43 TS [id number]) PT Summary Assessment and Plan Potential Rehabilitation Potential Fair Summary Impairments Pain,ROM,Strength,Balance,Tone ,Bed Mobility,Transfers,Gait, Activity Tolerance Progress Towards Goals Progressing Toward Goals Assessment Summary Peter is making progress with his mobility this session but is having more pain this afternoon that is limiting him . He is SBA for all bed mobility with HOB elevated and use of rails. He performed STS with FWW SBA. He progressed his gait to ~40' SBA with FWW and a slow step to gait. He performed stairs x2 with single rail and [employer] Diana for descending steps. Recommended to pt and spouse to have another person to help into the house when he goes home. pt was hesitant to go homeand eventually agreed with spouse he will go home tonight. PT is recommending home 24/ with assist and outpatient PT. Goals Bed Mobility Goal Independent Transfer Goal Independent,Front Wheeled Walker Gait Goal Independent,Front Wheel Walker Gait Distance 125 Other Goals Pt will ascend and descend step with LRAD and no more than CGA to allow safe home entrance. Days to Meet Goals 5 Frequency of Treatment Frequency Of Treatment Twice a Day Treatment Plan Physical Therapy Treatment Plan Bed Mobility Training,Transfer Training,Gait Training, Therapeutic Exercise,Balance Retraining,Post Op Education, Discharge Planning,Hot or Cold Pack Weight Bearing Status Weight Bearing Status Weight Bear as Tolerated Recommendations To Nursing Amount of Assist Needed 1 Person Assist Discharge Recommendations PT Discharge Recommendations Home with 24/7 Assist Available,Outpatient PT Transportation Needs at Discharge Private Vehicle
[2023-12-27] MEDS: AMLODIPINE 5 MG TABLET PO (16:25)
== END 2023-12-27 16:20 | disposition home or self-care (01) ==
LOC: OR 10:03 → AC 10:04
PROVIDERS: PCP Internal Medicine Geriatric Medicine; Referring Provider Orthopaedic Surgery Foot and Ankle Surgery; Visit Provider Orthopaedic Surgery Foot and Ankle Surgery
PROC: 0SRC0JZ Replacement of Right Knee Joint with Synthetic Substitute, Open Approach (ICD-10-PCS; CPT 27447; principal; 2023-12-26 11:45)
DX: M17.11 Unilateral primary osteoarthritis, right knee (principal); Z68.41 Body mass index [BMI] 40.0-44.9, adult; G89.18 Other acute postprocedural pain; M25.761 Osteophyte, right knee
CPT/HCPCS: 27447; 20985; 36415; 64450; 73560; 85014; 85018; 93971; 97116; 97161; 97165; 97530; 97535; C1776; C9290; J0171; J0690; J1100; J2250; J2405; J2704; J3010